=== PATIENT | female | born 1985 | race Caucasian/White ===

== ENCOUNTER 2017-05-25 18:14 | Inpatient (IN) | payer BC, OTHER ==
[2017-05-25] MEDS ORDERED: Glycerin ADULT SUPP PR PRN (21:27)
[2017-05-25] MEDS ORDERED: Dibucaine 1% 28.35 GM TUBE PR PRN (21:27)
[2017-05-25] MEDS ORDERED: Witch Hazel PAD* JAR TOPICAL PRN (21:27)
[2017-05-25] MEDS ORDERED: Acetaminophen TAB* 325 MG PO PRN (21:27)
[2017-05-26] MEDS: Ibuprofen TAB* 600 MG PO PRN ×3 (05:37→13:26)
[2017-05-26] MEDS ORDERED: Lidocaine 1% MPF* 2 ML VIAL ONE (06:52)
[2017-05-26] MEDS ORDERED: Simethicone TAB* 80 MG TAB.CHEW PO SCH (08:30)
[2017-05-26] MEDS ORDERED: Ferrous Gluconate TAB* 324 MG TAB PO SCH (09:00)
[2017-05-26] MEDS: Docusate CAP* 100 MG PO SCH ×3 (09:03→21:48)
[2017-05-26 10:49] LABS: Hematocrit 35 % (35-47); Hemoglobin 11.7 g/dl (12.0-16.0); Mean Corpuscular HGB Conc 34 g/dl (31-36); Mean Corpuscular Hemoglobin 31 pg (27-31); Mean Corpuscular Volume 93 fL (80-97); Mean Platelet Volume 10 um3 (7.4-10.4); Red Blood Count 3.77 10^6/ul (4.0-5.4); Red Cell Distribution Width 15 % (10.5-15); White Blood Count 14.5 10^3/ul (3.5-10.8)
[2017-05-27 08:17] VITALS: BP 127/77
[2017-05-27] MEDS: Ibuprofen TAB* 600 MG PO PRN (08:42)
[2017-05-27] MEDS: Docusate CAP* 100 MG PO SCH (08:42)
== END 2017-05-27 12:47 | disposition home or self-care (01) | DRG 560 ==
LOC: MCHOBOUT 18:14 → MCHOB 18:25
PROVIDERS: ADMIT Midwife; ATTEND Midwife
PROC: 0KQM0ZZ Repair Perineum Muscle, Open Approach (ICD-10-PCS; principal; 2017-05-25)
PROC: 4A1HX4Z Monitoring of Products of Conception, Cardiac Electrical Activity, External Approach (ICD-10-PCS; 2017-05-25)
PROC: 10E0XZZ Delivery of Products of Conception, External Approach (ICD-10-PCS; 2017-05-25)
DX: O48.0 Post-term pregnancy (principal); K64.9 Unspecified hemorrhoids; O75.89 Other specified complications of labor and delivery; Z3A.40 40 weeks gestation of pregnancy; Z37.0 Single live birth; O70.1 Second degree perineal laceration during delivery
CPT/HCPCS: 36415; 85025; A9270-GY

== ENCOUNTER 2018-03-22 21:00 | Emergency (ER) | payer BC ==
[2018-03-22 21:15] VITALS: BP 128/77
--- NOTE | 2018-03-22 21:23 | UC ---
Throat Pain/Nasal Slava HPI - HPI Summary HPI Summary: 32-year-old female presents with a month and a half of intermittent headache, nasal congestion, and maxillary sinus pressure. States over the past week symptoms of become more persistent and over the last 2 days she has developed ear pressure as well. She has been occasionally using saline rinses and take an ibuprofen with minimal relief in symptoms. States she has also recently seen the dentist for routine care and no dental issues were identified at that time. Denies fever, chills, ear pain or drainage, sore throat, cough, dizziness , vertigo, chest pain, palpitations, shortness of breath, abdominal pain, nausea , or vomiting. - History of Current Complaint Chief Complaint: UCRespiratory Stated Complaint: SINUSES Time Seen by Provider: 03/22/18 21:09 Hx Obtained From: Patient Hx Last Menstrual Period: August2016 Onset/Duration: Gradual Onset, Lasting Weeks Pain Intensity: 0 Cough: None Associated Signs & Symptoms: Positive: Sinus Discomfort, Nasal Discharge. Negative: Fever, Vomiting - Allergies/Home Medications Allergies/Adverse Reactions: Allergies Allergy/AdvReac Type Severity Reaction Status Date / Time polysorb suture Allergy Unknown Uncoded 03/22/18 21:08 Reaction Details PMH/Surg Hx/FS Hx/Imm Hx Previously Healthy: Yes - denies significant past medical history - Surgical History Surgical History: None - Family History Family History: Noncontributory - Social History Occupation: Works From/At Home Lives: With Family Alcohol Use: Occasionally Substance Use Type: None Smoking Status (MU): Never Smoked Tobacco Have You Smoked in the Last Year: No - Immunization History Most Recent Influenza Vaccination: 02/22/17 Most Recent Tetanus Shot: 2014 Most Recent Pneumonia Vaccination: never Review of Systems Constitutional: Negative Skin: Negative Eyes: Negative ENT: Nasal Discharge, Sinus Pain/Tenderness - See history of present illness Respiratory: Negative Cardiovascular: Negative Gastrointestinal: Negative Neurological: Headache Is Patient Immunocompromised?: No All Other Systems Reviewed And Are Negative: Yes Physical Exam Triage Information Reviewed: Yes Appearance: Well-Appearing, No Pain Distress, Well-Nourished Vital Signs: Initial Vital Signs Temp 97.3 F 03/22/18 21:09 Pulse 87 03/22/18 21:09 Resp 16 03/22/18 21:09 BP 128/77 03/22/18 21:09 Pulse Ox 100 03/22/18 21:09 Vital Signs Reviewed: Yes Eyes: Positive: Conjunctiva Clear. Negative: Discharge ENT: Positive: Hearing grossly normal, Pharynx normal, Nasal congestion, TMs normal, Sinus tenderness - Maxillary, Uvula midline. Negative: Nasal drainage Neck: Positive: Supple, Nontender, No Lymphadenopathy Respiratory: Positive: Lungs clear, Normal breath sounds, No respiratory distress Cardiovascular: Positive: RRR, No Murmur Neurological: Positive: Alert Skin Exam: Normal Throat Pain/Nasal Course/Dx - Course Course Of Treatment: 32-year-old female with 1-1/2 months of intermittent headache, nasal congestion, sinus pressure that has become more persistent and pronounced over the past week. Afebrile. Exam unremarkable except for some nasal congestion and axillary sinus tenderness. Considering the duration of her symptoms I will go ahead and treat her with a ten-day course of amoxicillin as well as symptomatic treatment with saline rinses and fluticasone nasal spray. She is to follow-up with her primary care provider if symptoms persist. Warning symptoms were reviewed. Patient verbalizes understanding and agrees with plan of care. - Differential Dx/Diagnosis Provider Diagnoses: acute maxillary sinusitis Discharge - Sign-Out/Discharge Documenting (check all that apply): Patient Departure All imaging exams completed and their final reports reviewed: No Studies - Discharge Plan Condition: Stable Disposition: HOME Prescriptions: Amoxicillin PO (*) [Amoxicillin 875 MG (*)] 875 mg PO BID #20 tab Fluticasone NASAL SPRAY 50MCG* [Flonase NASAL SPRAY 50MCG*] 2 spray BOTH NARES DAILY #1 btl Patient Education Materials: Sinusitis (ED) Referrals: No Primary Care Phys,NOPCP [Primary Care Provider] - Additional Instructions: Considering the duration of your symptoms will treat you for sinus infection with an antibiotic. Start amoxicillin 875 mg 1 tablet twice a day for 10 days. Take this with some food to avoid upset stomach. Be sure to complete the entire ten-day course even if you're feeling better. Start fluticasone nasal spray 2 sprays each nostril once daily. Continue doing the saline irrigation (Netti Pot) at least twice a day to help thin secretions and promote drainage. You may take [id number] acetaminophen (Tylenol) or ibuprofen (Advil, Motrin) according to directions as needed for any aches, pains, or headache. Follow-up with your primary care provider if your symptoms persist. Seek immediate medical attention if you develop a fever greater than 100.5 F, have a sudden severe headache, visual disturbances, dizziness, or any worsening of symptoms. - Billing Disposition and Condition Condition: STABLE Disposition: Home
== END 2018-03-22 21:36 | disposition home or self-care (01) ==
LOC: UCCORT 21:00
DX: J01.00 Acute maxillary sinusitis, unspecified (principal); L23.1 Allergic contact dermatitis due to adhesives
CPT/HCPCS: 99212; G0463

== ENCOUNTER 2019-05-27 15:21 | Emergency (ER) | payer BC, OTHER ==
[2019-05-27 15:30] VITALS: BP 131/63
--- NOTE | 2019-05-27 15:35 | UC ---
FLU HPI - HPI Summary HPI Summary: 33-year-old female who is 13 weeks presents with one-week history of nasal congestion, sinus pressure, sore throat, bilateral ear fullness, and a productive cough. Patient states over the last 3-4 days the symptoms have been progressively getting worse especially her sore throat. Starting today she has a loss of voice. No measured fever but has noted chills. Denies ear pain, dysphagia, chest pain, shortness of breath, abdominal pain, nausea, vomiting, or diarrhea. - History of Current Complaint Chief Complaint: UCRespiratory Stated Complaint: LOSING VOICE,COUGH,ST Time Seen by Provider: 05/27/19 15:31 Hx Obtained From: Patient Hx Last Menstrual Period: August2016 ?: Yes - 13 weeks Pain Intensity: 8 - Allergy/Home Medications Allergies/Adverse Reactions: Allergies Allergy/AdvReac Type Severity Reaction Status Date / Time polysorb suture Allergy Unknown Uncoded 05/27/19 15:27 Reaction Details PMH/Surg Hx/FS Hx/Imm Hx Previously Healthy: Yes - Denies significant PHM - Surgical History Surgical History: None - Family History Known Family History: Positive: Non-Contributory - Social History Occupation: Works From/At Home Lives: With Family Alcohol Use: None Substance Use Type: None Smoking Status (MU): Never Smoked Tobacco Have You Smoked in the Last Year: No - Immunization History Most Recent Influenza Vaccination: 02/22/17 Most Recent Tetanus Shot: 2014 Most Recent Pneumonia Vaccination: never Review of Systems All Other Systems Reviewed And Are Negative: Yes Constitutional: Positive: Chills. Negative: Fever Skin: Negative: Rash Eyes: Negative: Drainage, Eye Redness ENT: Positive: Sore Throat, Ear Ache, Nasal Discharge, Sinus Congestion, Sinus Pain/Tenderness Respiratory: Positive: Cough. Negative: Shortness Of Breath Cardiovascular: Negative: Palpitations, Chest Pain Gastrointestinal: Negative: Abdominal Pain, Vomiting, Diarrhea, Nausea Genitourinary: Positive: Negative Musculoskeletal: Positive: Negative Neurological: Positive: Negative Is Patient Immunocompromised?: No Physical Exam - Summary Physical Exam Summary: GENERAL APPEARANCE: Well developed, well nourished, alert and cooperative, and appears to be in no acute distress. EYES: Conjunctiva clear. No drainage. EARS: External auditory canals and tympanic membranes clear, hearing grossly intact. NOSE: Moderate nasal congestion. No nasal discharge. Maxillary sinus tenderness. THROAT: Pharyngeal erythema. No tonsilar inflammation, swelling, exudate, or lesions. Uvula midline. NECK: Neck supple, non-tender without lymphadenopathy. CARDIAC: Normal S1 and S2. No S3, S4 or murmurs. Rhythm is regular. There is no peripheral edema, cyanosis or pallor. Extremities are warm and well perfused. Capillary refill is less than 2 seconds. Peripheral pulses intact. LUNGS: Clear to auscultation without rales, rhonchi, wheezing or diminished breath sounds. Loose nonproductive cough. ABDOMEN: Positive bowel sounds. Soft, nondistended, nontender. No guarding or rebound. No masses or hepatosplenomegally. MUSKULOSKELETAL: ROM intact to all extremities. No joint erythema or tenderness. Normal muscular development. Normal gait. SKIN: Skin normal color, texture and turgor with no lesions or eruptions. Triage Information Reviewed: Yes Vital Signs: Initial Vital Signs Temp 98.3 F 05/27/19 15:27 Pulse 104 05/27/19 15:27 Resp 16 05/27/19 15:27 BP 131/63 05/27/19 15:27 Pulse Ox 100 05/27/19 15:27 Vital Signs Reviewed: Yes Flu Course/Dx - Course Course Of Treatment: 33-year-old female who is 13 weeks presents with one-week history of nasal congestion, sinus pressure, sore throat, bilateral ear fullness, and a productive cough. Patient states over the last 3-4 days the symptoms have been progressively getting worse especially her sore throat. Starting today she has a loss of voice. No measured fever but has noted chills. Denies ear pain, dysphagia, chest pain, shortness of breath, abdominal pain, nausea, vomiting, or diarrhea. Afebrile. Vital signs stable. Patient had moderate nasal congestion, maxillary sinus tenderness, pharyngeal erythema, no tonsillar swelling or exudate, no cervical lymphadenopathy, clear bilateral breath sounds , loose nonproductive cough, and otherwise unremarkable exam. Discussed with the patient that symptoms may likely represent a viral illness although considering the duration and worsening of the patient's symptoms cannot rule out a secondary bacterial infection. We reviewed the risks and benefit of treating with an antibiotic versus symptomatic treatment the patient is electing for the former. She is to start amoxicillin 875 mg twice a day 10 days as well as continue with symptomatic treatment. She is to follow-up with her primary care provider in 5-7 days if symptoms are not improving. Anticipatory guidance warning symptoms were reviewed with the patient. Verbalizes understanding and agrees with plan of care. - Differential Dx/Diagnosis Differential Diagnosis/HQI/PQRI: Bronchitis, Influenza, Pneumonia, Upper Respiratory Infection Provider Diagnosis: URI (upper respiratory infection) Discharge ED - Sign-Out/Discharge Documenting (check all that apply): Patient Departure All imaging exams completed and their final reports reviewed: No Studies - Discharge Plan Condition: Stable Disposition: HOME Prescriptions: Amoxicillin PO (*) [Amoxicillin 875 MG (*)] 875 mg PO BID #20 tab Patient Education Materials: Upper Respiratory Infection (ED) Referrals: No Primary Care Phys,NOPCP [Primary Care Provider] - Additional Instructions: Your history and exam are consistent with an upper respiratory infection. Considering the duration and worsening of your symptoms we will start you on an antibiotic. Take amoxicillin 875 mg twice a day for 10 days. Take with food to avoid upset stomach. Be sure to take the entire course even if feeling better. Drink plenty of fluids to avoid dehydration especially if you are running any fever. Use a saline rinse kit such as Neti Pot or NeilMed at least twice a day to help thin secretions and promote drainage of the sinuses. Use over the counter fluticasone (Flonase) nasal spray 2 sprays each nostril once daily. You may use plain Robitussin according to directions to help with the cough. Take over the counter acetaminophen (Tylenol) according to directions as needed for pain or fever. Use salt water gargles several times a day if you have a sore throat. You may also use Chloraseptic spray or Cepacol lonzenges according to directions which contain a numbing medication and can provide some temporary relief from your sore throat. Follow up with your primary care provider in 5-7 days if symptoms persist. Seek immediate medical attention in the emergency room if you have fever greater than 100.5 F despite taking acetaminophen or ibuprofen, have chest pain , difficulty breathing, are unable to swallow, or have any worsening of symptoms. - Billing Disposition and Condition Condition: STABLE Disposition: Home
== END 2019-05-27 15:55 | disposition home or self-care (01) ==
LOC: UCCORT 15:21
DX: O99.511 Diseases of the respiratory system complicating pregnancy, first trimester (principal); J06.9 Acute upper respiratory infection, unspecified; O99.89 Other specified diseases and conditions complicating pregnancy, childbirth and the puerperium; H92.03 Otalgia, bilateral; Z3A.13 13 weeks gestation of pregnancy; Z91.09 Other allergy status, other than to drugs and biological substances
CPT/HCPCS: 99212; G0463

== ENCOUNTER 2019-07-19 08:25 | Emergency (ER) | payer OTHER, BC ==
[2019-07-19 08:39] VITALS: BP 121/80
[2019-07-19 08:55] LABS: Influenza A Molecular POSITIVE (Negative)
--- NOTE | 2019-07-19 09:43 | UC ---
General HPI - HPI Summary HPI Summary: Mom states she has had a cold for the past 2.5 weeks. These past several days she has felt worse. No fevers. But coughing worse and bodyaches. good PO. No N/V/D. Sore throat. Patient is 21 weeks . Did get a flu shot MEds reviewed Doing netti pot but still very congested - History of Current Complaint Chief Complaint: UCRespiratory Stated Complaint: COLD SYMP Time Seen by Provider: 07/19/19 08:44 Hx Last Menstrual Period: August2016 Pain Intensity: 6 - Allergy/Home Medications Allergies/Adverse Reactions: Allergies Allergy/AdvReac Type Severity Reaction Status Date / Time polysorb suture Allergy Unknown Uncoded 07/19/19 08:39 Reaction Details Home Medications: Home Medications Acetaminophen/Diphenhydramine [Tylenol Pm Ex-Strength Caplet] 1 each PO ONCE [History Confirmed 07/19/19] PMH/Surg Hx/FS Hx/Imm Hx Previously Healthy: Yes - Surgical History Surgical History: None - Family History Known Family History: Positive: Non-Contributory - Social History Alcohol Use: None Substance Use Type: None Smoking Status (MU): Never Smoked Tobacco Have You Smoked in the Last Year: No - Immunization History Most Recent Influenza Vaccination: 02/22/17 Most Recent Tetanus Shot: 2014 Most Recent Pneumonia Vaccination: never Review of Systems All Other Systems Reviewed And Are Negative: Yes ENT: Positive: Sore Throat, Sinus Congestion Respiratory: Positive: Cough Physical Exam Triage Information Reviewed: Yes Appearance: Well-Appearing Vital Signs: Initial Vital Signs Temp 98.0 F 07/19/19 08:36 Pulse 106 07/19/19 08:36 Resp 18 07/19/19 08:36 BP 121/80 07/19/19 08:36 Pulse Ox 100 07/19/19 08:36 Vital Signs Reviewed: Yes ENT: Positive: Pharyngeal erythema, Tonsillar swelling Neck: Positive: Supple, Nontender Respiratory: Positive: Lungs clear, Normal breath sounds Cardiovascular: Positive: No Murmur, Tachycardia Course/Dx - Course Course Of Treatment: This is a 33 yr old 21 weeks gestation with Influenza No respiratory distress Plan Recommend starting Tamiflu as prescribed Can use Flonase nasal spray as directed Can use delsym cough syrup as needed for cough Rest, fluids and tylenol as needed for fever - take as directed If symptoms persist or worsen recommend follow up with PCP or return to urgent care - Diagnoses Provider Diagnosis: Influenza A Discharge ED - Sign-Out/Discharge Documenting (check all that apply): Patient Departure All imaging exams completed and their final reports reviewed: No Studies - Discharge Plan Condition: Good Disposition: HOME Prescriptions: Oseltamivir CAP* [Tamiflu CAP*] 75 mg PO BID #10 cap Patient Education Materials: Influenza (ED) Referrals: No Primary Care Phys,NOPCP [Primary Care Provider] - Additional Instructions: Recommend starting Tamiflu as prescribed Can use Flonase nasal spray as directed Can use delsym cough syrup as needed for cough Rest, fluids and tylenol as needed for fever - take as directed If symptoms persist or worsen recommend follow up with PCP or return to urgent care - Billing Disposition and Condition Condition: GOOD Disposition: Home
== END 2019-07-19 10:00 | disposition home or self-care (01) ==
LOC: UCCORT 08:25
DX: J10.1 Influenza due to other identified influenza virus with other respiratory manifestations (principal); Z91.09 Other allergy status, other than to drugs and biological substances
CPT/HCPCS: 99212; G0463

== ENCOUNTER 2019-11-23 07:56 | Inpatient (IN) ==
[2019-11-23] MEDS ORDERED: Lactated Ringers 1000 ml BAG 1,000 ML IV ONE ×2 (09:11→22:46)
[2019-11-23 09:28] LABS: ABS Lymphocytes 1.7 10^3/ul (1.0-4.8); ABS Monocytes 0.5 10^3/ul (0-0.8); Eosinophil % 0.3 %; Hematocrit 37 % (35-47); Hemoglobin 12.7 g/dL (12.0-16.0); Lymphocyte % 16.5 %; Mean Corpuscular HGB Conc 35 g/dL (31-36); Mean Corpuscular Hemoglobin 32 pg (27-31); Mean Corpuscular Volume 94 fL (80-97); Mean Platelet Volume 10.8 fL (7.4-10.4); Platelet Count 161 10^3/uL (150-450); Red Blood Count 3.94 10^6 /uL (3.70-4.87); Red Cell Distribution Width 15 % (10-15); White Blood Count 10.3 10^3/uL (3.5-10.8)
[2019-11-23 09:44] LABS: Urine Benzodiazepine Screen None Detected (None Detect); Urine Opiates Screen None Detected (None Detect)
[2019-11-23] MEDS ORDERED: Oxytocin in LR 20 UNITS/1,000 ML BAG IVPB SCH (10:00)
[2019-11-23] MEDS ORDERED: Lactated Ringers 1000 ml BAG 1,000 ML IV SCH ×2 (10:00→23:00)
[2019-11-23] MEDS ORDERED: Oxytocin in LR 20 UNITS/1,000 ML BAG IVPB ONE (10:02)
[2019-11-23] MEDS: Lactated Ringers 1000 ml BAG 1,000 ML IV SCH ×2 (10:38→18:54)
[2019-11-23] MEDS ORDERED: OBEPIDURAL 250 ML EPIDURAL ONE (22:13)
[2019-11-23] MEDS ORDERED: Phenylephrine 40 mcg/mL 10mL (400mcg) SYRINGE IV PUSH PRN ×2 (22:46)
[2019-11-23] MEDS ORDERED: Sodium Citrate/Citric Acid LIQ 15 ML UDC PO PRN (22:46)
[2019-11-23] MEDS ORDERED: OBEPIDURAL 250 ML EPIDURAL SCH (23:00)
[2019-11-24] MEDS: Ondansetron 4 mg VIAL 2 MG/ML 2 ml VIAL IV SCH ×2 (02:39→08:15)
[2019-11-24] MEDS ORDERED: Dibucaine 1% OINT 28.35 GM TUBE PR PRN (09:25)
[2019-11-24] MEDS ORDERED: Glycerin ADULT 2.4 gm SUPP PR PRN (09:25)
[2019-11-24] MEDS ORDERED: Witch Hazel PAD JAR TOPICAL PRN (09:25)
[2019-11-24] MEDS: Lactated Ringers 1000 ml BAG 1,000 ML IV SCH (09:36)
[2019-11-24] MEDS ORDERED: Lactated Ringers 1000 ml BAG 1,000 ML IV SCH (10:00)
[2019-11-24] MEDS ORDERED: Ammonia Inhalant 1 EA AMP ONE (12:32)
[2019-11-25 08:50] LABS: ABS Eosinophils 0.1 10^3/ul (0-0.6); ABS Lymphocytes 2.1 10^3/ul (1.0-4.8); ABS Monocytes 0.7 10^3/ul (0-0.8); Eosinophil % 0.7 %; Hematocrit 35 % (35-47); Hemoglobin 11.3 g/dL (12.0-16.0); Lymphocyte % 14.7 %; Mean Corpuscular HGB Conc 33 g/dL (31-36); Mean Corpuscular Hemoglobin 31 pg (27-31); Mean Corpuscular Volume 96 fL (80-97); Mean Platelet Volume 10.2 fL (7.4-10.4); Nucleated Red Blood Cells % 0.1; Platelet Count 128 10^3/uL (150-450); Red Cell Distribution Width 15 % (10-15); White Blood Count 14.4 10^3/uL (3.5-10.8)
[2019-11-26 07:37] VITALS: BP 115/71
== END 2019-11-26 20:20 | disposition home or self-care (01) | DRG 560 ==
LOC: MCHOBOUT 07:56 → MCHOB 09:07
PROVIDERS: ADMIT Midwife; ATTEND Obstetrics & Gynecology